=== PATIENT | male | born 1965 | race Caucasian/White ===

== ENCOUNTER 2018-08-07 11:40 | Emergency (ER) | payer OTHER ==
[~2018-08-07] VITALS: Ht 177.8 cm; Wt 88.0 kg
[2018-08-07] MEDS ORDERED: OMNIPAQUE 350 MG/ML, 100ML BOTTLE ONE (12:05)
[2018-08-07 12:38] LABS: BASOPHILS % (AUTO) 0 % (0-1); EOSINOPHILS % (AUTO) 2 % (1-7); LYMPHOCYTES # (AUTO) 1.27 x10^3/uL (1-3.4); LYMPHOCYTES % (AUTO) 26 % (22-44); MD NO; MEAN CORPUSCULAR HEMOGLOBIN 32.6 pg (27.5-34.5); MEAN CORPUSCULAR HGB CONC 33.7 g/dL (33.2-36.2); MEAN CORPUSCULAR VOLUME 96.7 fL (81-97); MEAN PLATELET VOLUME 9.5 fL (7.4-10.4); MONOCYTES # (AUTO) 0.38 x10^3/uL (0.2-0.8); MONOCYTES % (AUTO) 8 % (2-9); NEUTROPHILS # (AUTO) 3.14 x10^3/uL (1.8-6.8); NEUTROPHILS % (AUTO) 64 % (42-75); PLATELET COUNT 187 x10^3/uL (130-400); RED CELL DISTRIBUTION WIDTH 13.6 % (9.4-14.8)
[2018-08-07 12:47] LABS: INTERNATIONAL NORMALIZED RATIO 1.07 (0.93-1.1); PROTHROMBIN TIME 11.3 Seconds (9.6-11.5)
[2018-08-07 12:58] LABS: TROPONIN I < 0.015 ng/mL (0.000-0.045)
--- NOTE | 2018-08-07 13:04 | NUR ---
PT IN ROOM WITH AT SIDE. AWAITING RESULTS AT THIS TIME. NO NEEDS EXPRESSED.
[2018-08-07 13:22] VITALS: BP 116/74
--- NOTE | 2018-08-07 13:27 | NUR ---
Dr Zavala IN ROOM.
[2018-08-07] MEDS ORDERED: ASPI-647 PO (13:57)
== END 2018-08-07 14:38 | disposition home or self-care (01) ==
LOC: ED 12:55
DX: I63.89 Other cerebral infarction (principal); I63.211 Cerebral infarction due to unspecified occlusion or stenosis of right vertebral artery
CPT/HCPCS: 36415; 70450; 70496; 70498; 80047; 84484; 85025; 85610; 85730; 93005; 99284; Q9967